=== PATIENT | male | born 1960 | race Caucasian/White ===

== ENCOUNTER 2017-11-11 06:32 | Inpatient (IN) | payer BC ==
[~2017-11-11 06:32] MED LIST: CELECOXIB 100 MG CAPSULE PO ONE; FAMOTIDINE 20MG TABLET PO ONE; MECLIZINE 25 MG TABLET PO ONE; METOCLOPRAMIDE 10 MG TABLET PO ONE; VANCOMYCIN HCL 1,000 MG in DEXTROSE 5 % IN WATER 250 ML IVPB ONE
[2017-11-11 12:04] LABS: ABO GROUP A; ANTIBODY SCREEN NEGATIVE (NEGATIVE); RH TYPE POSITIVE
[2017-11-11] MEDS ORDERED: DEXAMETHASONE 4 MG/ML 1ML VIAL IVP ONE (14:00)
[2017-11-11] MEDS ORDERED: MIDAZOLAM HCL 2MG/2ML VIAL IV ONE (14:00)
[2017-11-11] MEDS ORDERED: *PACU ONLY* KETAMINE HCL 10 MG/ML (20ML) VIAL IV ONE (14:00)
[2017-11-11] MEDS ORDERED: PROPOFOL 10 MG/ML VIAL IV ONE (14:00)
[2017-11-11] MEDS ORDERED: ONDANSETRON HCL IV 4 MG/2 ML VIAL IVP ONE (14:00)
[2017-11-11] MEDS ORDERED: HYDROMORPHONE HCL 2 MG/ML VIAL IV ONE (14:00)
[2017-11-11] MEDS ORDERED: FENTANYL PF 100MCG/2ML VIAL IV ONE (14:00)
[2017-11-11] MEDS ORDERED: BISACODYL 10 MG SUPP RC PRN (15:01)
[2017-11-11] MEDS ORDERED: AL HYDROX/MAG HYDROX 30ML UD PO PRN (15:01)
[2017-11-11] MEDS ORDERED: DIPHENHYDRAMINE HCL 25 MG CAPSULE PO PRN (15:01)
[2017-11-11] MEDS ORDERED: KETOROLAC 30 MG/ML VIAL IVP PRN ×2 (15:01)
[2017-11-11] MEDS ORDERED: TRAMADOL HCL 50 MG TABLET PO PRN (15:01)
[2017-11-11] MEDS ORDERED: ACETAMINOPHEN W/ CODEINE 300MG/60MG TABLET PO PRN ×2 (15:01)
[2017-11-11] MEDS ORDERED: HYDROMORPHONE HCL 2 MG/ML VIAL IM PRN (15:01)
[2017-11-11] MEDS ORDERED: NALOXONE 0.4 MG/1 ML VIAL IVP PRN (15:01)
[2017-11-11] MEDS ORDERED: ONDANSETRON HCL IV 4 MG/2 ML VIAL IVP PRN (15:01)
[2017-11-11] MEDS ORDERED: ZOLPIDEM TARTRATE 5 MG TABLET PO PRN (15:01)
[2017-11-11] MEDS ORDERED: MAGNESIUM HYDROXIDE 30 ML UDC PO PRN (15:01)
[2017-11-11] MEDS ORDERED: HYDROCODONE/APAP 10/325 TABLET PO PRN (15:01)
[2017-11-11] MEDS ORDERED: ACETAMINOPHEN 325 MG TAB PO PRN (15:01)
--- NOTE | 2017-11-11 15:52 | Operative Note ---
DATE OF SURGERY: 11/11/17 PREOPERATIVE DIAGNOSIS: PROFOUND END-STAGE ARTHROSIS OF THE RIGHT HIP. POSTOPERATIVE DIAGNOSIS: PROFOUND END-STAGE ARTHROSIS OF THE RIGHT HIP. PROCEDURE: CEMENTLESS RIGHT TOTAL HIP ARTHROPLASTY USING MONTE AND NEPHEW COMPONENTS WITH A SIZE 52 NO-HOLE REFLECTION CUP, A HIGHLY CROSSLINKED 32 MM DIAMETER 35-DEGREE OFFSET, A SIZE 13 STANDARD ECHELON STEM WITH A PLUS ZERO, 32 MM DIAMETER OXINIUM HEAD. SURGEON: DR. HURTADO ANESTHESIA: SPINAL. PREPARATION: CHLORAPREP. INDIVIDUAL CONSIDERATIONS: NONE. ASSISTANT PROFESSOR OF DIETETICS: MRS. DARREN CASTANO. PROCEDURE: The patient was taken to the Operating Room and placed supine on the operating room table. He had a successful induction of a spinal anesthetic. He was then placed on his side, right side up, and his right leg and hip were prepped and draped in the usual fashion. The patient had direct posterior approach to the hip. Sharp dissection carried down through the skin and subcutaneous tissue. Small veins were coagulated with a Bovie. The tensor gluteal fascia was opened along the entire length of the incision and deep retractors were placed. Short external rotators were identified at piriformis fossa and removed exposing the posterior capsule. A posterior capsulectomy was performed and the hip was dislocated posteriorly. He had exposed bone, loose bodies, and flaking of the articular surface. A femoral neck cut was made about a fingerbreadth above the lesser trochanter using an oscillating saw. A rim capsulectomy was performed. The patient had a large medial wall osteophyte. Starting with a 43, I used it to get just to the medial wall and then reamed the introitus with a 51 for a size 52 cup. I just slightly essentially reamed a 50. I then obtained a size 52 no-hole reflection cup and after irrigation, I impacted this at about 25 to 30 degrees of forward flexion and 30 degrees of abduction using the extra-articular alignment guide and bony landmarks. There was solid cementless fixation. The center cap screw was placed and then after irrigation, I impacted the 32 mm diameter Highly Crosslinked liner with the offset posteriorly and inferiorly. This gave an excellent stable acetabular construct and this was packed off. The proximal femur was delivered into the wound. Box cutting osteotome was used to remove the proximal metaphyseal bone. Midstem reaming was done to a size 13. I just barely started feeling cortex between 11and 12. I broached to a size 13 dialing anteversion in about 30 degrees; slightly a little bit more than the natural anteversion angle. There was solid cementless fixation with a broach. Calcar reaming with a plus zero trial head. There was absolute stability. The broach was removed and after thorough irrigation, I went ahead and impacted a size 13 [place] stem standard offset with solid calcar fixation and contact and solid cementless fixation. I irrigated and dried the Ortiz taper, impacted a plus zero, 32 mm diameter Oxinium head, reduced the hip, and at this point had absolute stability. I had full stability with maximum hip flexion up to his chest even internally rotated maximally, maximum stability at full extension external rotation. After irrigation, the sciatic nerve was inspected and found to be completely intact. I went ahead and started to close the fascia with running #2 Quill. I infiltrated the skin with 30 mL of 0.50% Marcaine with Epinephrine and then I placed a gram of Tranexamic Acid mixed with 30 mL deep to the fascia. The patient did receive a gram of Tranexamic Acid preoperatively. At this point, Darren Castano, certified librarian assistant, finished the closure and finished the fascial closure with a running #2 Quill, the subcut was closed with running 0 Quill, and the skin was closed with brianna, and a sterile Bulkee compressive Aquacel-type dressing was applied. The patient tolerated the procedures well. Needle and sponge counts were correct. Estimated blood loss was minimal and he was taken back to Recovery in good condition. There were no complications. cc: Dr. Sachin Diaz JOB NUMBER: [id number] MTDD
[2017-11-11] MEDS ORDERED: NICOTINE 21 MG/24 HOUR PATCH TD SCH (16:30)
[2017-11-11] MEDS: HYDROCODONE/APAP 10/325 TABLET PO PRN (20:35)
[2017-11-11] MEDS: DOCUSATE SODIUM 100 MG CAPSULE PO SCH (21:28)
[2017-11-11] MEDS: NICOTINE POLACRILEX 2 MG GUM BC PRN (21:29)
[2017-11-12] MEDS: VANCOMYCIN HCL 1,000 MG in 0.9 % SODIUM CHLORIDE 250ML 250 ML IVPB SCH ×3 (00:06→12:20)
[2017-11-12] MEDS: POTASSIUM CHLORIDE/D5-0.9%NACL 20 MEQ/1,000 ML BAG IV SCH ×2 (01:06→08:02)
[2017-11-12] MEDS: HYDROCODONE/APAP 10/325 TABLET PO PRN ×3 (01:37→10:19)
[2017-11-12 06:48] LABS: HEMATOCRIT 41.4 % (42.0-52.0); HEMOGLOBIN 13.6 gm/dl (14.0-18.0)
[2017-11-12 07:04] LABS: BLOOD UREA NITROGEN 10 mg/dL (6-20); CREATININE 0.6 mg/dL (0.7-1.2); EST GLOMERULAR FILTRATION RATE > 60 mL/min; GLUCOSE,RANDOM 114 mg/dL (74-109)
[2017-11-12] MEDS: NICOTINE POLACRILEX 2 MG GUM BC PRN ×2 (08:01→10:18)
[2017-11-12] MEDS ORDERED: TRANEXAMIC ACID 1,000 MG/10 ML ML IV ONE (09:34)
[2017-11-12] MEDS ORDERED: BUPIVACAINE 0.25% W/EPI MPF 30ML VIAL IVP ONE (09:34)
--- NOTE | 2017-11-12 09:50 | Rehab Evaluation ---
Patient Information - Patient Information Diagnosis: DJD R Hip Ordered Treatment: PT Evaluate and Treat Status: Initial Evaluation Surgery: Yes (R LENNIE) Date of Surgery: 11/11/17 Past Medical/Surgical Hx: PAST MEDICAL/SURGICAL HISTORY Past Surgical History LTHA 2004 right knee scope PMH - Respiratory Hx Respiratory Disorders No PMH - Cardiovascular Hx Cardiovascular Disorders No Exercise Tolerance Good PMH - Neuro Hx Neurological Disorders No PMH - GI Hx Gastrointestinal Disorders Yes Hx Gastroesophageal Reflux Yes: once in a while PMH - Hx Genitourinary Disorders No PMH - Endocrine Hx Endocrine Disorders Yes Comment: hx of hypoglycemia PMH - Musculoskeletal Hx Musculoskeletal Disorders Yes Hx Arthritis Yes: right hip, shoulders and neck PMH - Psych Hx Psychiatric Problems No PMH - Hematology/Oncology Hx Hematology/Oncology Yes Disorders Hx Blood Transfusion Reaction No Social History: Detail (The patient lives in a 2 story home by himself. The home has 14 steps to the second floor with a railing on the right side., and has 2 steps to enter with a railing on both sides. The patient has a tub/shower combination, but will not be using a shower seat once he returns home. He does have a toilet seat raiser, and has a single grab bar present around the toilet. He will be using crutches for ambulation after surgery.) Precautions: Other (LENNIE Precautions) - Time With Patient Total Time Spent With Patient (Min): 30 Treatment Procedures: Detail (PT Initial Evaluation) Subjective Information - Subjective Information Per Patient (The patient reports a dull ache in the right hip, but nothing excruciating. States he had a L LENNIE in 2003.) Objective Data - Pain Pain Present: Yes Pain Intensity: 1 Pain Scale Used: Numeric (1 - 10) - Mental Status Patient Orientation: Oriented x3 - ROM Not within normal limits (L LE was WNL. R knee and ankle were WNL. R Hip decreased as expected s/p R LENNIE. Patient stated understanding of LENNIE precautions.) - Strength/Tone Within normal limits (L LE, R Knee, R Ankle not formally tested, but was WFL for gait activities. R Hip strength decreased as expected s/p R LENNIE) - Bed Mobility Independent (Understood hip precautions with scooting and sitting to EOB) - Transfers Independent (Understood precautions with sit to stand and stand to sit transfers and was independent.) - Balance Balance Sitting: Good (No LOB with sitting at EOB) Balance Standing: Good (No LOB with static standing or gait activities. Understood that if he ambulates too quickly, he has slight LOB. Patient was advised to slow down, and stated understanding.) - Sensation Intact - Gait Detail (The patient was able to ambulate from his room to the nurse's station with supervision(about 67 feet) and with axillary crutches and WBAT on R. He had no LOB with ambulation. The patient was then able to ascend/descend 10 steps with crutches and WBAT and supervision. He was reminded to decrease his speed on the steps to prevent a fall.) Therapy Assessment - Therapy Assessment Detail (The patient was independent with transfers and bed mobility. He only required slight supervision for ambulation and ascending/descending stairs. The patient stated understanding of R LENNIE precautions. HEP was reviewed, and patient stated understanding. The patient has passed all inpatient PT skills at this time.) Patient Education - Patient Education Teaching Topic: Exercise/Activity (HEP was reviewed, which included: Glute. sets , hamstring sets, quad sets, and ankle pumps. Patient asked about SLR, and was reminded to keep SLR below 90 degrees of flexion. Stated understanding with exercises.), Precautions (R LENNIE precautions were reviewed) Response: Return Demonstration, Verbalize Understanding Teaching Method: Discussion, Demonstration Teaching Recipient: Patient Barriers To Learning: None Problem List - Problem List Physical Therapy Problem List: Detail (1) Decreased ROM and strength in R Hip as expected s/p R LENNIE 2) Minimal complaints of pain.) Goals - Goals Physical Therapy Goals: No inpatient PT goals at this time, as the patient has passed gait, transfer, and stair skills. No further inpatient PT is required at this time. Prognosis - Prognosis Good Plan - Plan Physical Therapy Plan: The patient has passed all required skills for inpatient PT. The patient would benefit from further Home and/or Outpatient PT to increase R Hip strength, ROM, and to increase functional abilities.
[2017-11-12] MEDS ORDERED: RIVAROXABAN 10 MG TABLET PO SCH (10:00)
[2017-11-12] MEDS ORDERED: FERROUS SULFATE 325 MG TAB PO SCH (10:00)
[2017-11-12] MEDS: DOCUSATE SODIUM 100 MG CAPSULE PO SCH (10:15)
--- NOTE | 2017-11-12 11:28 | Rehab Evaluation ---
Patient Information - Patient Information Diagnosis: DJD R Hip Ordered Treatment: OT Evaluate and Treat Status: Initial Evaluation Surgery: Yes (R LNENIE) Date of Surgery: 11/11/17 Past Medical/Surgical Hx: PAST MEDICAL/SURGICAL HISTORY Past Surgical History LTHA 2004 right knee scope PMH - Respiratory Hx Respiratory Disorders No PMH - Cardiovascular Hx Cardiovascular Disorders No Exercise Tolerance Good PMH - Neuro Hx Neurological Disorders No PMH - GI Hx Gastrointestinal Disorders Yes Hx Gastroesophageal Reflux Yes: once in a while PMH - Hx Genitourinary Disorders No PMH - Endocrine Hx Endocrine Disorders Yes Comment: hx of hypoglycemia PMH - Musculoskeletal Hx Musculoskeletal Disorders Yes Hx Arthritis Yes: right hip, shoulders and neck PMH - Psych Hx Psychiatric Problems No PMH - Hematology/Oncology Hx Hematology/Oncology Yes Disorders Hx Blood Transfusion Reaction No Social History: Detail (The patient lives alone in a 2 story home. The home has 14 steps to the second floor with a railing on the right side. He has 2 steps to enter with a railing on one side. The patient has a tub/shower combination with grab bar, no seat and a standard height toilet with commode. He is Ind with all ADLs and IADLs. He will be using crutches for ambulation after surgery. He has a aluminum container tester and sock aid.) Precautions: Bracey, Other (LENNIE Precautions) - Time With Patient Total Time Spent With Patient (Min): 30 Treatment Procedures: Detail (OT eval low complexity) Subjective Information - Subjective Information Per Patient Objective Data - Pain Pain Present: Yes (2-3/10) - Mental Status Patient Orientation: Oriented x3 - Visual Perception Appears within normal limits for therapeutic activities - ROM Within normal limits (Mario UE AROM WNL) - Strength/Tone Within normal limits (Mario UE strength WNL) - Coordination Appears within normal limits for therapeutic activities - Sensation Intact - ADL's/IADL's Detail (Pt reports he was able to get dressed this am and did not have any difficulty. Reviewed total hip precautions and modified dressing technique as well as modifications for IADLs. Pt reports he is confident with all activities and does not want to practice LE dressing.) Therapy Assessment - Therapy Assessment Detail (Pt reports no concerns with ADLs/IADLs after discharge.) Problem List - Problem List Physical Therapy Problem List: Detail (1) Decreased ROM and strength in R Hip as expected s/p R LENNIE 2) Minimal complaints of pain.) Occupational Therapy Problem List: Detail (No current OT problems identified.) Goals - Goals Physical Therapy Goals: No inpatient PT goals at this time, as the patient has passed gait, transfer, and stair skills. No further inpatient PT is required at this time. Occupational Therapy Goals: No current OT goals identified at this time. Prognosis - Prognosis Good Plan - Plan Physical Therapy Plan: The patient has passed all required skills for inpatient PT. The patient would benefit from further Home and/or Outpatient PT to increase R Hip strength, ROM, and to increase functional abilities. Occupational Therapy Plan: No further IP OT recommended at this time. Thank you for this referral.
--- NOTE | 2017-11-12 22:09 | Discharge Summary ---
DATE OF ADMISSION: 11/11/2017 DATE OF DISCHARGE: 11/12/2017 DATE OF SURGERY: 11/11/2017 HISTORY: Mr. Kingsley is a delightful 57-year-old male who presents with profound end-stage arthrosis of his right hip and he was admitted after right total hip arthroplasty. Postoperatively, he did phenomenally well. His hospital course was unremarkable. He was independent the night of surgery. His discharge hemoglobin was 13.6. He did not require transfusion. DISCHARGE INSTRUCTIONS: The plan is to discharge him to home with the care of his family. Home PT and Visiting Nurse has been arranged. Sutures will be removed by the Visiting Nurse in two weeks. He will follow-up in my office in four weeks. He will given Xarelto followed by DVT prophylaxis and [facility] for pain. FINAL DIAGNOSIS: END-STAGE ARTHROSIS OF THE RIGHT HIP. OPERATIONS AND PROCEDURES: CEMENTLESS RIGHT TOTAL HIP ARTHROPLASTY. DISCHARGE CONDITION: Good. cc: Dr. Sachin Diaz JOB NUMBER: [id number] MTDD
== END 2017-11-12 14:14 | disposition home or self-care (01) | DRG 470 ==
LOC: MEDSURG 10:54
PROVIDERS: ADMIT Orthopaedic Surgery; ATTEND Orthopaedic Surgery
PROC: 0SR906A Replacement of Right Hip Joint with Oxidized Zirconium on Polyethylene Synthetic Substitute, Uncemented, Open Approach (ICD-10-PCS; principal; 2017-11-11 13:00)
DX: M16.11 Unilateral primary osteoarthritis, right hip (principal); Z72.0 Tobacco use
CPT/HCPCS: 80048; 85014; 85018; 86850; 86900; 86901; 97165; J2405; J7050